=== PATIENT | male | born 1960 | race Caucasian/White ===

== ENCOUNTER 2017-09-19 11:55 | Emergency (ER) | payer MEDICARE ==
[~2017-09-19] VITALS: Ht 165.1 cm; Wt 86.5 kg
[2017-09-19 12:02] VITALS: BP 132/84
== END 2017-09-19 13:01 | disposition home or self-care (01) ==
LOC: ED 12:40
DX: J20.8 Acute bronchitis due to other specified organisms (principal); B96.89 Other specified bacterial agents as the cause of diseases classified elsewhere
CPT/HCPCS: 71046; 99284

== ENCOUNTER 2020-10-09 15:56 | Emergency (ER) | payer MEDICARE, MEDICAID ==
[~2020-10-09] VITALS: Ht 167.6 cm; Wt 87.5 kg
[2020-10-09] MEDS ORDERED: KETOROLAC 30 MG/1 ML IM ONE (17:00)
[2020-10-09] MEDS ORDERED: KETOROLAC 30 MG/1 ML ONE (17:32)
[2020-10-09 17:35] VITALS: BP 118/83
--- NOTE | 2020-10-09 17:42 | NUR ---
pt medicated per emar. pt tolerated well.
--- NOTE | 2020-10-09 18:26 | NUR ---
Patient given discharge instructions and they have confirmed that they understand the instructions. Patient ambulatory with steady gait.
== END 2020-10-09 18:27 | disposition home or self-care (01) ==
LOC: ED 16:37
DX: S80.01XA Contusion of right knee, initial encounter (principal); X50.0XXA Overexertion from strenuous movement or load, initial encounter; Y93.89 Activity, other specified; Y92.009 Unspecified place in unspecified non-institutional (private) residence as the place of occurrence of the external cause; Y99.8 Other external cause status
CPT/HCPCS: 73564; 93971; 96372; 99284; J1885

== ENCOUNTER 2021-01-15 10:55 | Emergency (ER) | payer MEDICAID, MEDICARE ==
[~2021-01-15] VITALS: Ht 165.1 cm; Wt 83.3 kg
--- NOTE | 2021-01-15 11:12 | NUR ---
PT C/O LEFT KNEE PAIN X3 DAYS. DENIES INJURY.
[2021-01-15] MEDS ORDERED: IBUPROFEN 800 MG TABLET ONE (11:14)
[2021-01-15] MEDS ORDERED: IBUPROFEN 600 MG TABLET PO ONE (11:30)
[2021-01-15 11:57] VITALS: BP 117/58
== END 2021-01-15 12:31 | disposition home or self-care (01) ==
LOC: ED 11:28
DX: M25.562 Pain in left knee (principal)
CPT/HCPCS: 99283

== ENCOUNTER 2021-01-16 14:43 | Emergency (ER) | payer MEDICARE ==
[~2021-01-16] VITALS: Ht 165.1 cm; Wt 82.5 kg
--- NOTE | 2021-01-16 17:42 | NUR ---
pt from room from naya Connolly at bedside./
[2021-01-16 18:24] VITALS: BP 135/84
== END 2021-01-16 18:30 | disposition home or self-care (01) ==
LOC: ED 18:20
DX: B02.9 Zoster without complications (principal)
CPT/HCPCS: 99283

== ENCOUNTER 2021-03-13 12:20 | Emergency (ER) | payer MEDICARE ==
[~2021-03-13] VITALS: Ht 162.6 cm; Wt 79.5 kg
[2021-03-13 12:48] VITALS: BP 136/72
--- NOTE | 2021-03-13 13:34 | NUR ---
Pt walked back with chief complaint of right upper dental pain starting 2 day.
[2021-03-13] MEDS ORDERED: LIDOCAINE-MPF 1%, 5ML INFIL ONE (14:00)
[2021-03-13] MEDS ORDERED: LIDOCAINE-MPF 1%, 5ML ONE (14:33)
--- NOTE | 2021-03-13 14:40 | NUR ---
break rn::JASSI BULL IN DOING I&D
--- NOTE | 2021-03-13 16:23 | NUR ---
dc instructions reviewed
== END 2021-03-13 16:26 | disposition home or self-care (01) ==
LOC: ED 14:11
DX: K04.7 Periapical abscess without sinus (principal)
CPT/HCPCS: 41800; 99284